=== PATIENT | male | born 1940 | race Caucasian/White ===

== ENCOUNTER 2021-04-11 05:09 | Day surgery (SDC) | payer BC, OTHER ==
[2021-04-09 13:55] VITALS: BMI 25.2
[2021-04-11 08:31] VITALS: TEMP 97.1
[2021-04-11 08:42] VITALS: PULSE 67
[2021-04-11 09:04] VITALS: BP 129/55
== END 2021-04-11 09:10 | disposition home or self-care (01) ==
LOC: JASU-ENDO 05:09
PROVIDERS: ATTEND Internal Medicine Gastroenterology
PROC: 0DJD8ZZ Inspection of Lower Intestinal Tract, Via Natural or Artificial Opening Endoscopic (ICD-10-PCS; principal; 2021-04-11 07:55)
DX: Z12.11 Encounter for screening for malignant neoplasm of colon (principal); Z80.0 Family history of malignant neoplasm of digestive organs; K57.30 Diverticulosis of large intestine without perforation or abscess without bleeding